=== PATIENT | female | born 1975 | race Asian ===

== ENCOUNTER 2024-09-18 01:48 | Emergency (ER) | payer OTHER ==
[~2024-09-18] VITALS: Ht 167.6 cm; Wt 77.3 kg
[2024-09-18 02:02] VITALS: TEMP 97.6
[2024-09-18 02:27] VITALS: BP 143/86; PULSE 91; RESP 18; O2SAT 100
[2024-09-18] MEDS ORDERED: AMOX-457 PO (02:37)
[2024-09-18] MEDS: RABIES VACCINE, HUMAN DIPLOID/PF 2.5 UNITS/ML VIAL IM. ONE (02:38)
[2024-09-18] MEDS: RABIES IMMUNE GLOBULIN/PF 150 UNITS/ML 10 ML VIAL IM. ONE (02:38)
[2024-09-18] MEDS: BACITRACIN 0.9 GM PACKET OINTMENT TP ONE (02:49)
[2024-09-18] MEDS: PERTUSS(ACELL),DIPH,TET/PF 0.5 ML SYRINGE [ADULT] IM. ONE (02:53)
== END 2024-09-18 03:23 | disposition home or self-care (01) ==
LOC: EMS 01:48
DX: S81.832A Puncture wound without foreign body, left lower leg, initial encounter (principal); W54.0XXA Bitten by dog, initial encounter; Y93.89 Activity, other specified; Y92.89 Other specified places as the place of occurrence of the external cause; Y99.8 Other external cause status
CPT/HCPCS: 90375; 90471; 90472; 90675; 90715; 96372; 99284